=== PATIENT | male | born 1975 | race American Indian/Alaskan Native ===

== ENCOUNTER 2016-12-16 11:12 | Inpatient (IN) | payer MEDICARE ==
[2016-12-16 12:18] LABS: Basophils % (Auto) 0.8 % (0.0-1.8); Eosinophils % (Auto) 1.9 % (0.0-4.3); Hematocrit 47.7 % (35.5-45.6); Hemoglobin 15.5 gm/dl (11.8-15.2); Mean Corpuscular HGB Conc 32 % (32-34); Mean Corpuscular Hemoglobin 28 pg (28-32); Mean Corpuscular Volume 86 fl (84-94); Red Blood Count 5.57 M/mm3 (3.65-5.03); Red Cell Distribution Width 15.2 % (13.2-15.2); White Blood Count 3.8 K/mm3 (4.5-11.0)
[2016-12-16 12:28] LABS: Platelet Count 119 K/mm3 (140-440)
[2016-12-16 12:29] LABS: Anion Gap 17 mmol/L; Blood Urea Nitrogen 11 mg/dL (9-20); Calcium 8.6 mg/dL (8.4-10.2); Carbon Dioxide 22 mmol/L (22-30); Chloride 104.7 mmol/L (98-107); Glucose 124 mg/dL (75-100); Sodium 140 mmol/L (137-145)
--- NOTE | 2016-12-16 23:48 | Emergency Department Report ---
HPI - General Chief Complaint: Chest Pain Time Seen by Provider: 12/16/16 23:30 - HPI HPI: Room 5 The patient is a 41-year-old male presenting with a chief complaint of chest pain. The patient states his symptoms began at approximately 04:00 this morning with substernal chest pain that was "pricking" in nature. Patient admits to shortness of breath and nausea without vomiting or diaphoresis. The patient states his chest pain has been constant and waxes and wanes. The patient currently gives his pain a score of 6.5/10. Patient states his last stress test occurred approximately 3-5 months ago his last cardiac catheterization occurred 5-6 years ago Location: Chest Duration: Constant since 04:00 Quality: "Pricking" Severity: 0.5/10 Modifying factors: Unknown Context: [see above] Mode of transportation: Unknown ED Past Medical Hx - Past Medical History Hx Hypertension: Yes Hx Seizures: Yes Additional medical history: Thrombocytopenia - Surgical History Additional Surgical History: disk fusion to neck 1994 & oct 2013 - Family History Family history: no significant - Social History Smoking Status: Never Smoker Substance Use Type: None - Medications Home Medications: Home Medications Medication Instructions Recorded Confirmed Last Taken Type levETIRAcetam [Keppra TAB] 1,000 mg PO BID #60 tablet 10/05/15 11/08/15 Unknown Rx Ammonium Lactate [Lac-Hydrin 1 applicatio TP BID 30 Days 11/09/15 Unknown Rx Lotion] Hydrochlorothiazide [HCTZ] 25 mg PO DAILY #30 tablet 11/09/15 Unknown Rx Tizanidine HCl [Zanaflex] 2 mg PO TID PRN #15 capsule 11/09/15 Unknown Rx amLODIPine [Norvasc] 5 mg PO DAILY #30 tab 11/09/15 Unknown Rx Lisinopril/Hydrochlorothiazide 1 each PO QDAY #30 tablet 05/18/16 Unknown Rx [Zestoretic 20-12.5 mg] levETIRAcetam [Keppra TAB] 500 mg PO BID #60 tablet 05/18/16 Unknown Rx traMADol [Ultram] 50 mg PO Q6HR PRN #10 tablet 05/18/16 Unknown Rx ED Review of Systems ROS: Stated complaint: CHEST PAIN Other details as noted in HPI Comment: All other systems reviewed and negative Constitutional: denies: chills, fever Eyes: denies: eye pain, eye discharge, vision change ENT: denies: ear pain, throat pain Respiratory: shortness of breath Cardiovascular: chest pain, palpitations Gastrointestinal: nausea. denies: abdominal pain, vomiting, diarrhea Genitourinary: denies: urgency, dysuria Musculoskeletal: denies: back pain, joint swelling, arthralgia Skin: denies: rash, lesions Neurological: denies: headache, weakness, paresthesias Psychiatric: denies: anxiety, depression Hematological/Lymphatic: denies: easy bleeding, easy bruising Physical Exam - Physical Exam Vital Signs: Vital Signs 12/16/16 11:39 Temperature 97.6 F Pulse Rate 63 Respiratory 18 Rate Blood Pressure 131/92 O2 Sat by Pulse 98 Oximetry Physical Exam: GENERAL: The patient is well-developed well-nourished male lying on stretcher not appear to be in acute distress. [] HEENT: Normocephalic. Atraumatic. Extraocular motions are intact. Patient has moist mucous membranes. NECK: Supple. Trachea midline CHEST/LUNGS: Clear to auscultation. There is no respiratory distress noted. HEART/CARDIOVASCULAR: Regular. There is no tachycardia. There is no gallop rub or murmur. ABDOMEN: Abdomen is soft, nontender. Patient has normal bowel sounds. There is no abdominal distention. SKIN: There is no rash. There is no diaphoresis. NEURO: The patient is awake, alert, and oriented. The patient is cooperative. The patient has normal speech MUSCULOSKELETAL: There is no evidence of acute injury. ED Course Vital Signs 12/16/16 11:39 Temperature 97.6 F Pulse Rate 63 Respiratory 18 Rate Blood Pressure 131/92 O2 Sat by Pulse 98 Oximetry ED Medical Decision Making - Lab Data Result diagrams: 12/16/16 11:58 12/16/16 11:58 Laboratory Tests 12/16/16 12/16/16 12/16/16 11:58 11:58 15:27 WBC 3.8 L RBC 5.57 H Hgb 15.5 H Hct 47.7 H MCV 86 MCH 28 MCHC 32 RDW 15.2 Plt Count 119 L Lymph % (Auto) 43.7 H [place] % (Auto) 7.8 H Eos % (Auto) 1.9 Baso % (Auto) 0.8 Lymph # 1.7 Posey # 0.3 Eos # 0.1 Baso # 0.0 Seg Neutrophils % 45.8 Seg Neutrophils # 1.8 Sodium 140 Potassium 4.0 Chloride 104.7 Carbon Dioxide 22 Anion Gap 17 BUN 11 Creatinine 1.0 Estimated GFR > 60 BUN/Creatinine Ratio 11.00 Glucose 124 H Calcium 8.6 Troponin T < 0.010 < 0.010 12/16/16 21:05 WBC RBC Hgb Hct MCV MCH MCHC RDW Plt Count Lymph % (Auto) [place]osey % (Auto) Eos % (Auto) Baso % (Auto) Lymph # Posey # Eos # Baso # Seg Neutrophils % Seg Neutrophils # Sodium Potassium Chloride Carbon Dioxide Anion Gap BUN Creatinine Estimated GFR BUN/Creatinine Ratio Glucose Calcium Troponin T < 0.010 - EKG Data -: EKG Interpreted by Me EKG shows normal: sinus rhythm Rate: normal - EKG Data When compared to previous EKG there are: no significant change Interpretation: unchanged when compared t (05/18/2016), nonspecific ST-T wave anuradha (T-wave inversions in leads 2, 3, aVF, V3, V4, V5, V6) - Radiology Data Radiology results: image reviewed (chest x-ray) interpreted by me: Chest x-ray- no focal infiltrates, no ptx - Differential Diagnosis ACS, GERD, pericarditis, pneumonia Critical care attestation.: If time is entered above; I have spent that time in minutes in the direct care of this critically ill patient, excluding procedure time. ED Disposition Clinical Impression: Chest pain at rest Disposition: OP ADMITTED IP TO THIS HOSP Is pt being admited?: Yes Does the pt Need Aspirin: Yes Condition: Fair Instructions: Chest Pain (ED) Referrals: PRIMARY CARE, [Primary Care Provider] - 3-5 Days Time of Disposition: 23:47 (hospitalist notified)
[2016-12-16] MEDS ORDERED: ASPIRIN PO ONE (23:49)
[2016-12-17] MEDS ORDERED: MILK OF MAGNESIA PO PRN (00:42)
[2016-12-17] MEDS ORDERED: SODIUM CHLORIDE FLUSH SYRINGE 10 ML IV PRN (00:42)
[2016-12-17] MEDS ORDERED: TYLENOL PO PRN (00:42)
[2016-12-17] MEDS ORDERED: NORCO 5/325 PO PRN (00:42)
[2016-12-17] MEDS ORDERED: ZOFRAN IV PRN (00:42)
[2016-12-17] MEDS ORDERED: DULCOLAX PR PRN (00:42)
--- NOTE | 2016-12-17 00:45 | History and Physical Report ---
History of Present Illness Date of examination: 12/17/16 History of present illness: 41-year-old man history of hypertension, chronic pain, seizure comes emergency room with complaint of chest pain. Pain is in the left chest which he describes as a sharp pain, constant, started yesterday, intensity 7/10, no radiation. Stated that it's worse with breathing. Admits to nausea, shortness of breath, no diaphoresis or palpitation Patient denies cough, abdominal pain, hematochezia, dysuria, frequency, focal weakness, dysarthria, fever chills, polydipsia polyuria, hot or cold intolerance , easy bruisability, or rash or bleeding from mucosal membrane, rhinorrhea, epistaxis, earache, tinnitus, blurry vision, eye discharge, anxiety, depression. Other review of systems negative PAST SURGICAL HISTORY: Neck Surgery 2 SOCIAL HISTORY: Denies alcohol, tobacco, drugs FAMILY HISTORY: Hypertension Medications and Allergies Allergies Allergy/AdvReac Type Severity Reaction Status Date / Time phenytoin sodium AdvReac CANT STAND Verified 12/16/16 11:50 [From Dilantin] UP phenytoin sodium extended AdvReac CANT STAND Verified 12/16/16 11:50 [From Dilantin] UP Home Medications Medication Instructions Recorded Confirmed Last Taken Type levETIRAcetam [Keppra TAB] 1,000 mg PO BID #60 tablet 10/05/15 11/08/15 Unknown Rx Ammonium Lactate [Lac-Hydrin 1 applicatio TP BID 30 Days 11/09/15 Unknown Rx Lotion] Hydrochlorothiazide [HCTZ] 25 mg PO DAILY #30 tablet 11/09/15 Unknown Rx Tizanidine HCl [Zanaflex] 2 mg PO TID PRN #15 capsule 11/09/15 Unknown Rx amLODIPine [Norvasc] 5 mg PO DAILY #30 tab 11/09/15 Unknown Rx Lisinopril/Hydrochlorothiazide 1 each PO QDAY #30 tablet 05/18/16 Unknown Rx [Zestoretic 20-12.5 mg] levETIRAcetam [Keppra TAB] 500 mg PO BID #60 tablet 05/18/16 Unknown Rx traMADol [Ultram] 50 mg PO Q6HR PRN #10 tablet 05/18/16 Unknown Rx Active Meds: Active Medications Amlodipine Besylate (Norvasc) 5 mg PO DAILY [facility] Hydrochlorothiazide (Hctz) 25 mg PO DAILY [facility] Lactic Acid (Lac-Hydrin) 1 applic TP BID [facility] Levetiracetam (Keppra) 500 mg PO BID [facility] Exam - Physical Exam Narrative exam: Gen. appearance: Patient lying in bed, no apparent distress HEENT: Normocephalic, atraumatic, pupils equally round and reactive to light, extraocular movement intact, and no sclericterus,. No JVD or thyromegaly or nodule,neck supple, no carotid bruit ,mucous membranes moist, no exudate or erythema Heart: S1, S2, regular rate and rhythm Lungs: Clear to auscultation bilaterally, breathing comfortable Abdomen: Positive bowel sounds, nontender, nondistended, no organomegaly Extremity: No edema, cyanosis, clubbing Skin: No rash, nodules, warm, dry Neuro: Oriented 3, cranial nerves II-12 intact, speech is fluent, motor and sensory intact - Constitutional Vitals: Temp Pulse Resp BP Pulse Ox 97.6 F 63 18 131/92 98 12/16/16 11:39 12/16/16 11:39 12/16/16 11:39 12/16/16 11:39 12/16/16 11:39 Results - Labs CBC & Chem 7: 12/16/16 11:58 12/16/16 11:58 Labs: Abnormal lab results 12/16/16 12/16/16 Range/Units 11:58 11:58 WBC 3.8 L (4.5-11.0) K/mm3 RBC 5.57 H (3.65-5.03) M/mm3 Hgb 15.5 H (11.8-15.2) gm/dl Hct 47.7 H (35.5-45.6) % Plt Count 119 L (140-440) K/mm3 Lymph % (Auto) 43.7 H (13.4-35.0) % [place] % (Auto) 7.8 H (0.0-7.3) % Glucose 124 H (75-100) mg/dL - Imaging and Cardiology EKG: image reviewed Chest x-ray: image reviewed Assessment and Plan Atypical chest pain Seizure [place] pain and Admits medicine Check cardiac enzymes, liver profile consult cardiology Start DVT prophylaxis
[2016-12-17 05:13] LABS: Creatine Kinase MB 2.8 ng/mL (0.0-4.0)
--- NOTE | 2016-12-17 06:21 | Admit Criteria Form ---
Admission Criteria Documentation: CARDIOLOGY GRG Clinical Indications for Admission to Inpatient Care ( Place 'X' for any and all applicable criteria): Hospital admission is needed for appropriate care of the patient because of ANY ONE of the following (1): [ ] I. Hemodynamic instability as indicated by ALL of the following (1)(2)(3) (4)(5) [ ]a) Vital signs or other findings not as expected for chronic patient condition or baseline [ ]b) Instability indicated by ANY ONE of the following: [ ]i) Hypotension [ ]ii) Symptomatic Tachycardia unresponsive to treatment ( e.g., analgesia, fluids, sedation as indicated) [ ]iii) Inadequate perfusion indicated by ANY ONE of the following: [ ] 1) Lactic acidosis (> 2 mmol/L) [ ] 2) New abnormal capillary refill (> 3 seconds) [ ] 3) Reduced urine output [ ] 4) New altered mental status [ ]iv) Orthostatic vital sign changes unresponsive to treatment (e.g., fluids) [ ]v) IV inotropic or vasopressor medication required to maintain adequate blood pressure or perfusion [ ] II. Severe heart failure as indicated by ANY ONE of the following(17)(18) [ ]a) Respiratory distress [ ]b) Hypotension [ ]c) Anasarca (refractory to outpatient therapy) [ ]d) Cardiac arrhythmias of immediate concern [ ]e) Myocardial ischemia [ ] III. Cardiac arrhythmias or findings of immediate concern indicated by ANY ONE of the following (19)(20): [ ] a) Heart rhythms that are inherently dangerous or unstable indicated by ANY ONE of the following (21)(22)(23): [ ] i) Resuscitated ventricular fibrillation or cardiac arrest [ ] ii) Ventricular escape rhythm [ ] iii) Sustained ventricular tachycardia (30 seconds or more of ventricular rhythm at greater than 100 beats per minute) [ ] iv) Nonsustained ventricular tachycardia and ANY ONE of the following: [ ] 1) Suspected cardiac ischemia as cause or consequence of ventricular tachycardia [ ] 2) In setting of acute myocarditis [ ] b) Unstable cardiac conduction defects indicated by ANY ONE of the following(23)(24)(25) [ ] i) Type II second-degree atrioventricular block [ ]ii) Third-degree atrioventricular block [ ]iii) New-onset left bundle branch block with suspected myocardial ischemia [ ]c) Any heart rhythm and ANY ONE of the following (21)(22)(26)(27) (28) [ ] i) Continuous long-term ECG monitoring needed (e.g., initiation of drug requiring monitoring for more than 24 hours) [ ] ii) Patient has automatic implanted cardioverter defibrillator that is repeatedly firing, malfunctioning, or in need of immediate adjustment of settings beyond the scope of ambulatory or observation care [ ]d) Heart rhythms of concern due to ANY ONE of the following: [ ] i) Hypotension [ ] ii) Respiratory distress [ ] iii) Association with other significant symptoms (e.g., bradycardia with syncope or ongoing dizziness, supraventricular tachycardia with chest pain (14)(15)(17) [ ] IV. Monitoring for cardiac contusion beyond the scope of observation care needed [A](30)(31)(32) [ ] V. Surgical or device complication (e.g., valve replacement complication , pacemaker dysfunction) (35)(41)(44)(45)(46) [ ] . Inpatient palliative care needed. [B](49) Also use Inpatient Palliative Care Criteria [ ] VII. Nonbacterial thrombotic (marantic) endocarditis (36)(43)(47)(48) [X ] VIII. Cardiology condition, symptom, or finding for which emergency and observation care has failed or are not considered appropriate. [ ] IX. Acute valvular disease requiring inpatient as indicated by ANY ONE of the following (41) [ ]a) Acute valvular regurgitation (42) [ ]b) Noninfectious valvulitis (43) [ ]c) Obstructive valve thrombosis [ ]d) Paravalvular leak [ ]e) Other significant valvular disorder remaining after emergency or observation level of care (as appropriate) [ ]X. Pericardial disease requiring inpatient treatment as indicated by ANY ONE of the following (33)(34)(35)(36)(37) [ ]a) Suspected tamponade (38)(39)(40) [ ]b) Hemopericardium [ ]c) Other significant pericardial disorder remaining after emergency or observation level of care (as appropriate) [ ] XI. Cardiac ischemia beyond scope of emergency and observation care. [ ] XII. Hypertension requiring inpatient treatment as indicated by ANY ONE of the following (6)(7)(8) [ ]a) SBP greater than 220 mm Hg or DBP greater than 120 mmHg despite treatment [ ]b) SBP greater than 140 mm Hg or DBP greater than 100 mm Hg with evidence of acute end organ damage as indicated by ANY ONE of the following [ ] i) Altered mental status [ ] ii) Acute renal failure as indicated by new onset of ANY ONE of the following (9)(10)(11)(12)(13) [ ]1) 3-fold rise in serum creatinine from baseline [ ]2) Serum creatinine greater than 4 mg/dL ( 354 micromoles/L) with acute rise greater than 0.5 mg/dL (44.2 micromoles/L) [ ]3) Reduction of more than 75% in estimated glomerular filtration rate from baseline [ ]4) Estimated glomerular filtration rate less than 35 mL/min/1.73m2 (0.59 mL/sec/1.73m2) in child up to 18 years of age [ ]5) Cessation of urine output indicated by ALL of the following [ ]A. Adequate volume status [ ]B. Inadequate urine output as indicated by ANY ONE of the following [ ]a. Urine output less than 0.3 mL/kg/hr for 24 hours [ ]b. Anuria (urine output less than 0.1 mL/kg/hr) for 12 hours [ ] iii) Aortic dissection [ ] iv) Myocardial Ischemia [ ] v) Left ventricular heart failure [ ]vi) Retinal Hemorrhage [ ]vii) Other significant finding [ ]c) Hypertension in child requiring inpatient treatment as indicated by ALL of the following(14)(15)(16) [ ] i) Outpatient treatment not effective, not available, or not appropriate [ ]ii) SBP or DBP greater than 95th percentile for age [ ]iii) Evidence of acute end organ damage as indicated by ANY ONE of the following [ ]1) Altered mental status [ ]2) Acute renal failure as indicated by new onset of ANY ONE of the following(9)(10)(11)(12)(13) [ ]A. 3-fold rise in serum creatinine from baseline [ ]B. Serum creatinine greater than 4 mg/dL (354 micromoles/L) with acute rise greater than 0.5 mg/dL (44.2 micromoles/L) [ ]C. Reduction of more than 75% in estimated glomerular filtration rate from baseline [ ]D. Estimated glomerular filtration rate less than 35 mL/min/1.73m2 (0.59 mL/sec/1.73m2) in child up to 18 years of age [ ]E. Cessation of urine output indicated by ALL of the following [ ]a. Adequate volume status [ ]b. Inadequate urine output as indicated by ANY ONE of the following [ ]i) Urine output less than 0.3 mL/kg/hr for 24 hours [ ]ii) Anuria ( urine output less than 0.1 mL/kg/hr) for 12 hours [ ]3) Severe headache [ ]4) Visual disturbance [ ]5) Retinal hemorrhage [ ]6) Other significant finding [ ]XIII. Complications of transplanted heart indicated by ANY ONE of the following(61): [ ]a) Acute graft rejection requiring inpatient management (eg, intravenous immunosuppression)(62)(63) [ ]b) Acute graft heart failure indicated by ANY ONE of the following(64): [ ]i) Hemodynamic instability [ ]ii) Cardiac arrhythmias of immediate concern [ ]iii) Pulmonary edema that is very severe (eg, mechanical ventilation needed, imminent or likely, need for 100% oxygen to keep oxygen saturation above 90%) [ ]iv) Pulmonary edema that is persistent as indicated by ALL of the following: [ ]1) New need for oxygen therapy to keep oxygen saturation above 90% (or increased FiO2 need from baseline) [ ]2) Has not improved sufficiently with emergency department or observation care IV diuretics or other heart failure treatments[E] [ ]v) Altered mental status that is severe or persistent [ ]vi) Increased creatinine (new on laboratory test) with reduction of more than 50% in estimated glomerular filtration rate from baseline [ ]vii) Progressively (ongoing) rising creatinine (known from past laboratory test) with reduction of more than 25% in estimated glomerular filtration rate from baseline [ ]viii) Acute renal failure [ ]ix) Acute peripheral ischemia (eg, examination shows pulseless, cool, mottled, or cyanotic extremity) [ ]x) Pulmonary artery catheter monitoring needed [ ]xi) Other sign or symptom of heart failure requiring inpatient treatment (ie, too severe or not responsive to outpatient and observation care treatment) [ ]c) Infection requiring inpatient management (eg, Hemodynamic instability, need for intravenous antimicrobial treatment)(66)(67)(68)(69)(70) [ ]d) Cardiac allograft vasculopathy requiring inpatient management ( eg evidence of cardiac ischemia)(71) [ ]e) Other complication of transplanted heart (eg, stroke, severe pulmonary hypertension, severe valvular dysfunction) requiring inpatient management(72) The original [facility] [employer] content created by [facility] [employer] has been revised. The portions of the content which have been revised are identified through the use of italic text or in bold, and [facility] has neither reviewed nor approved the modified material. All other unmodified content is copyright [facility] [employer]. Please see references footnoted in the original [facility] [employer] edition 2016
[2016-12-17] MEDS: HCTZ PO SCH ×2 (08:28→10:28)
[2016-12-17] MEDS: NORVASC PO SCH ×2 (08:28→10:28)
[2016-12-17] MEDS: KEPPRA PO SCH ×2 (08:29→10:28)
[2016-12-17] MEDS ORDERED: LAC-HYDRIN TP SCH (10:00)
[2016-12-17] MEDS ORDERED: LOVENOX SUB-Q SCH (10:00)
--- NOTE | 2016-12-17 10:19 | XRay Report ---
AP CHEST: HISTORY: chest pain AP view of the chest demonstrates a normal mediastinal and cardiac contour with clear lungs and normal bony and soft tissue structures. IMPRESSION: Unremarkable AP chest. No significant change since 11/08/15.
[2016-12-17 11:31] LABS: Creatine Kinase MB 3.4 ng/mL (0.0-4.0)
--- NOTE | 2016-12-17 11:56 | Consultation ---
History of Present Illness Consult date: 12/17/16 Medications and Allergies Allergies Allergy/AdvReac Type Severity Reaction Status Date / Time phenytoin sodium AdvReac CANT STAND Verified 12/16/16 11:50 [From Dilantin] UP phenytoin sodium extended AdvReac CANT STAND Verified 12/16/16 11:50 [From Dilantin] UP Home Medications Medication Instructions Recorded Confirmed Last Taken Type levETIRAcetam [Keppra TAB] 1,000 mg PO BID #60 tablet 10/05/15 11/08/15 Unknown Rx Ammonium Lactate [Lac-Hydrin 1 applicatio TP BID 30 Days 11/09/15 Unknown Rx Lotion] Hydrochlorothiazide [HCTZ] 25 mg PO DAILY #30 tablet 11/09/15 Unknown Rx Tizanidine HCl [Zanaflex] 2 mg PO TID PRN #15 capsule 11/09/15 Unknown Rx amLODIPine [Norvasc] 5 mg PO DAILY #30 tab 11/09/15 Unknown Rx Lisinopril/Hydrochlorothiazide 1 each PO QDAY #30 tablet 05/18/16 Unknown Rx [Zestoretic 20-12.5 mg] levETIRAcetam [Keppra TAB] 500 mg PO BID #60 tablet 05/18/16 Unknown Rx traMADol [Ultram] 50 mg PO Q6HR PRN #10 tablet 05/18/16 Unknown Rx Active Meds: Active Medications Acetaminophen (Tylenol) 650 mg PO Q4H PRN PRN Reason: Pain MILD(1-3)/Fever >100.5/[place] Acetaminophen/Hydrocodone Bitart ([place] 5/325) 2 each PO Q6H PRN PRN Reason: Pain, Moderate (4-6) Amlodipine Besylate (Norvasc) 5 mg PO DAILY [facility] Last Admin: 12/17/16 10:28 Dose: Not Given Bisacodyl (Dulcolax) 10 mg MT QDAY PRN PRN Reason: Constipation unrelieved by MOM Hydrochlorothiazide (Hctz) 25 mg PO DAILY [facility] Last Admin: 12/17/16 10:28 Dose: Not Given Lactic Acid (Lac-Hydrin) 1 applic TP BID [facility] Last Admin: 12/17/16 10:29 Dose: 1 applic Levetiracetam (Keppra) 500 mg PO BID [facility] Last Admin: 12/17/16 10:28 Dose: Not Given Magnesium Hydroxide (Milk Of Magnesia) 30 ml PO Q4H PRN PRN Reason: Constipation Ondansetron HCl (Zofran) 4 mg IV Q8H PRN PRN Reason: N/V unrelieved by Reglan Sodium Chloride (Sodium Chloride Flush Syringe 10 Ml) 10 ml IV PRN PRN PRN Reason: LINE FLUSH Physical Examination Vital Signs Temp Pulse Resp BP Pulse Ox 97.6 F 63 18 131/92 98 12/16/16 11:39 12/16/16 11:39 12/16/16 11:39 12/16/16 11:39 12/16/16 11:39 Results 12/16/16 11:58 12/16/16 11:58 Cardiac Enzymes 12/17/16 12/17/16 Range/Units 04:21 10:16 CK-MB (CK-2) 2.8 3.4 (0.0-4.0) ng/mL Lipids 12/17/16 Range/Units 00:58 Triglycerides 137 (2-149) mg/dL Cholesterol 182 (50-199) mg/dL HDL Cholesterol 41 (40-59) mg/dL Cholesterol/HDL Ratio 4.43 % Assessment and Plan 41yo AAM: 1. Atypical chest pain - now resolved and asx * cardiac ct lest year w/ normal cors and 0 ca score * ce neg * ecg unchanged 2. htn 3. siezure d/o 4. conversion d/o cont asa stable cv status no further testing needed thanks
[2016-12-17] MEDS ORDERED: BABY ASPIRIN PO SCH (12:00)
[2016-12-17 12:44] VITALS: BP 178/106
--- NOTE | 2016-12-17 12:49 | Discharge Summary ---
Providers - Providers Date of Admission: 12/17/16 00:42 Date of discharge: 12/17/16 Attending physician: RAYSA MCKINNEY Primary care physician: [employer] Hospitalization Condition: Fair Hospital course: Discharge Diagnosis: 1. Atypical chest pain - now resolved and asx, likely costrochondritis * cardiac ct lest year w/ normal cors and 0 ca score * ce neg * ecg unchanged 2. htn 3. siezure d/o 4. conversion d/o Disposition: DISCHARGED TO HOME OR SELFCARE Time spent for discharge: 32 minutes Core Measure Documentation - Palliative Care Palliative Care/ Comfort Measures: Not Applicable - Core Measures Any of the following diagnoses?: none Exam - Constitutional Vitals: Temp Pulse Resp BP Pulse Ox 98.3 F 62 20 178/106 97 12/17/16 11:42 12/17/16 11:42 12/17/16 11:42 12/17/16 11:42 12/17/16 11:42 General appearance: Present: no acute distress, well-nourished - EENT Eyes: Present: PERRL, EOM intact ENT: hearing intact, clear oral mucosa - Neck Neck: Present: supple, normal ROM - Respiratory Respiratory effort: normal Respiratory: bilateral: CTA - Cardiovascular Rhythm: regular Heart Sounds: Present: S1 & S2 - Extremities Extremities: no ischemia, No edema Peripheral Pulses: within normal limits - Abdominal General gastrointestinal: Present: soft, non-distended, normal bowel sounds - Integumentary Integumentary: Present: warm, dry - Musculoskeletal Musculoskeletal: strength equal bilaterally - Psychiatric Psychiatric: intact judgment & insight - Neurologic Neurologic: no focal deficits, moves all extremities Plan Activity: advance as tolerated Weight Bearing Status: Weight Bear as Tolerated Diet: low cholesterol, low salt Follow up with: PRIMARY CARE, [Primary Care Provider] - 3-5 Days Forms: Discharge Signature Page Prescriptions: Ammonium Lactate [Lac-Hydrin Lotion] 1 applicatio TP BID 30 Days Lisinopril/Hydrochlorothiazide [Zestoretic 20-12.5 mg] 1 each PO QDAY #30 tablet
== END 2016-12-17 15:30 | disposition home or self-care (01) | DRG 206 ==
LOC: ED 11:12 → UNDOADMIN 12-17 00:37 → 4A 12-17 00:37
PROVIDERS: ADMIT Internal Medicine; ATTEND Internal Medicine
DX: M94.0 Chondrocostal junction syndrome [Tietze] (principal); I10 Essential (primary) hypertension; G40.909 Epilepsy, unspecified, not intractable, without status epilepticus; Z82.49 Family history of ischemic heart disease and other diseases of the circulatory system; Z88.8 Allergy status to other drugs, medicaments and biological substances
CPT/HCPCS: 36415; 71010; 80048; 80061; 82550; 82553; 84484; 85025; 85379; 93005; 93010

== ENCOUNTER 2017-02-24 06:13 | Emergency (ER) | payer MEDICARE ==
[2017-02-24] MEDS ORDERED: KEPPRA 1,000 MG/NS 0.75% 100ML 1,000 MG/100 ML BAG IV ONE (08:05)
[2017-02-24] MEDS ORDERED: NORVASC PO ONE (08:05)
[2017-02-24] MEDS ORDERED: KEPPRA PO ONE ×2 (08:23→08:31)
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
[2017-02-24 08:53] LABS: Hematocrit 45.8 % (35.5-45.6); Hemoglobin 14.7 gm/dl (11.8-15.2); Mean Corpuscular HGB Conc 32 % (32-34); Mean Corpuscular Hemoglobin 27 pg (28-32); Mean Corpuscular Volume 85 fl (84-94); Red Blood Count 5.38 M/mm3 (3.65-5.03); Red Cell Distribution Width 15.2 % (13.2-15.2); White Blood Count 4.2 K/mm3 (4.5-11.0)
[2017-02-24 08:54] LABS: Platelet Count 88 K/mm3 (140-440)
[2017-02-24 09:14] LABS: Anion Gap 20 mmol/L; BUN/Creatinine Ratio 17.14; Blood Urea Nitrogen 12 mg/dL (9-20); Calcium 8.9 mg/dL (8.4-10.2); Carbon Dioxide 22 mmol/L (22-30); Chloride 102.8 mmol/L (98-107); Glucose 134 mg/dL (75-100); Potassium 3.8 mmol/L (3.6-5.0); Sodium 141 mmol/L (137-145)
[2017-02-24 10:00] VITALS: BP 130/80
== END 2017-02-24 10:26 | disposition home or self-care (01) ==
LOC: ED 06:13
DX: R56.9 Unspecified convulsions (principal); I10 Essential (primary) hypertension; D69.6 Thrombocytopenia, unspecified; Z91.14 Patient's other noncompliance with medication regimen
CPT/HCPCS: 36415; 80048; 83735; 85027; 99283; J1953

== ENCOUNTER 2017-03-09 04:57 | Emergency (ER) | payer MEDICARE ==
[2017-03-09] MEDS ORDERED: KEPPRA 1,000 MG/NS 0.75% 100ML 1,000 MG/100 ML BAG IV ONE (05:16)
[2017-03-09 05:58] LABS: Urine Drugs of Abuse Note Disclamer
[2017-03-09 06:10] LABS: Basophils % (Auto) 0.4 % (0.0-1.8); Eosinophils % (Auto) 1.6 % (0.0-4.3); Hematocrit 43.6 % (35.5-45.6); Hemoglobin 14.4 gm/dl (11.8-15.2); Mean Corpuscular HGB Conc 33 % (32-34); Mean Corpuscular Hemoglobin 28 pg (28-32); Mean Corpuscular Volume 85 fl (84-94); Red Blood Count 5.12 M/mm3 (3.65-5.03); Red Cell Distribution Width 15.3 % (13.2-15.2); White Blood Count 4.3 K/mm3 (4.5-11.0)
[2017-03-09 06:16] LABS: Bilirubin,Urine NEG (Negative); Blood,Urine NEG (Negative); Ketones,Urine NEG (Negative); Leukocyte Esterase,Urine NEG (Negative); Mucus,Urine FEW /HPF; Nitrite,Urine NEG (Negative); Protein,Urine <15 mg/dL mg/dL (Negative); Urobilinogen,Urine < 2.0 mg/dL (<2.0)
[2017-03-09 06:17] LABS: Platelet Count 90 K/mm3 (140-440)
[2017-03-09 06:20] LABS: INR 1.13 (0.87-1.13)
[2017-03-09 06:21] LABS: Partial Thromboplastin Time 31.4 Sec. (24.2-36.6)
[2017-03-09 06:26] LABS: Alanine Aminotransferase 35 units/L (7-56); Albumin 4.2 g/dL (3.9-5); Albumin/Globulin Ratio 1.4 %; Alkaline Phosphatase 50 units/L (35-129); Anion Gap 18 mmol/L; Blood Urea Nitrogen 14 mg/dL (9-20); Calcium 8.8 mg/dL (8.4-10.2); Carbon Dioxide 24 mmol/L (22-30); Chloride 102.5 mmol/L (98-107); Glucose 93 mg/dL (75-100); Potassium 3.6 mmol/L (3.6-5.0); Sodium 141 mmol/L (137-145); Total Protein 7.1 g/dL (6.3-8.2)
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
[2017-03-09] MEDS ORDERED: BOOSTRIX IM ONE (07:11)
--- NOTE | 2017-03-09 07:12 | Cat Scan Report ---
FINAL REPORT PROCEDURE: CT HEAD/BRAIN WO CON TECHNIQUE: Computerized tomography of the head was performed without contrast material. HISTORY: Altered Mental Status s/p seizure COMPARISON: No prior studies are available for comparison. FINDINGS: Skull and scalp: There is scalp swelling at the skull vertex. There is partial imaging of in metallic foreign body in the scalp. Please correlate clinically. Bony calvarium is intact.. Paranasal sinuses: Normal. Ventricles and subarachnoid spaces: Normal. Cerebrum: No evidence of hemorrhage, acute infarction or mass . Cerebellum and brainstem: No evidence of hemorrhage, acute infarction or mass. Vasculature: Normal. Comments: None. IMPRESSION: There is no skull fracture or intracranial hemorrhage.There is scalp swelling at the skull vertex. There is partial imaging of in metallic foreign body in the scalp. Please correlate clinically.
--- NOTE | 2017-03-09 07:16 | Cat Scan Report ---
FINAL REPORT PROCEDURE: CT CERVICAL SPINE WO CON TECHNIQUE: Computerized tomography of the cervical spine was performed from the skull base to T1 without contrast material. HISTORY: fall COMPARISON: No prior studies are available for comparison. FINDINGS: There is hardware transfixing the ventral aspect of C4 and C5. There is hardware transfixing the spinous processes of C6 and C7. There are multilevel degenerative disc changes. There are no fractures or malalignments. There is no facet dislocation. The skull base and the foramen magnum are intact. The prevertebral soft tissues are normal in thickness. IMPRESSION: There is no acute traumatic injury.
--- NOTE | 2017-03-09 08:43 | Admit Criteria Form ---
Admission Criteria Documentation: HEMODYNAMIC INSTABILITY Clinical Indications for Inpatient Care (Place 'X' for any and all applicable criteria): Ongoing inpatient care may be indicated for hemodynamic instability as indicated by ANY ONE of the following (1)(2)(3)(4)(10): [ ]I) Marked hemodynamic change from baseline (eg, SBP 20 mm Hg below patient's usual pressure) [X ]II) New SBP less than 90 mm Hg or mean arterial pressure less than 70 mm Hg [B](15) [ ]IIII) Symptomatic heart rate greater than 100 or less than 60 beats per minute unresponsive to treatment (eg, analgesia, fluids) [ ]IV) Inadequate perfusion as indicated by ANY ONE of the following: [ ]a) Lactic acidosis, with lactic acid greater than 18 mg/dL (2 mmol/ L) or base excess less than -5 mEq/L [ ]b) New abnormal capillary refill (longer than 3 seconds) [ ]c) New altered mental status [ ]d) Reduced urine output [ ]V) Orthostatic vital sign changes [B] that are symptomatic and unresponsive to treatment (eg, fluids) [ ]) IV inotropic or vasopressor medication required(26) Extended stay beyond goal length of stay for primary condition may be needed until ALL of the following are present(1)(2)(3): [ ]a) Heart rate > 60 and < 100 beats per minute or patient is clinically stable at current rate (eg, baseline) [ ]b) SBP >100 mm Hg and <160 mm Hg or patient is clinically stable at current pressure (eg, baseline) [ ]c) DBP greater than 50 mm Hg and less than 100 mm Hg or patient is clinically stable at current pressure (eg, baseline) [ ]d) Urine output greater than 0.5 mL/kg per hour [ ]e) Room air oxygen saturation 90% or greater or at baseline [ ]f) Orthostatic vital sign changes absent, asymptomatic, at baseline, or manageable at lower level of care [ ]g) Medical comorbidities manageable at lower level of care The original [employer] content created by [employer] has been revised. The portions of the content which have been revised are identified through the use of italic text or in bold, and [facility] [employer] has neither reviewed nor approved the modified material. All other unmodified content is copyright [employer]. Please see references footnoted in the original [facility] edition 2016 Admission Criteria Met: Yes
--- NOTE | 2017-03-09 15:21 | XRay Report ---
PORTABLE CHEST: Chest pain. An AP portable view of the chest demonstrates a normal cardiac contour considering the limits of this technique. The lungs are clear with no evidence of infiltrate, fluid or failure. IMPRESSION: Normal portable chest.
[2017-03-09 16:56] VITALS: BP 167/101
== END 2017-03-09 16:58 | disposition home or self-care (01) ==
LOC: ED 04:57
DX: G40.909 Epilepsy, unspecified, not intractable, without status epilepticus (principal); I10 Essential (primary) hypertension; D69.6 Thrombocytopenia, unspecified; Z88.8 Allergy status to other drugs, medicaments and biological substances
CPT/HCPCS: 36415; 70450; 71010; 72125; 80053; 80307; 81001; 82140; 83735; 84484; 85025; 85610; 85730; 90715; 93005; 93010; 96365; 99285; J1953

== ENCOUNTER 2017-08-09 13:53 | Emergency (ER) | payer MEDICARE ==
[2017-08-09 14:55] LABS: Basophils % (Auto) 0.9 % (0.0-1.8); Eosinophils % (Auto) 3.8 % (0.0-4.3); Hematocrit 27.6 % (35.5-45.6); Hemoglobin 9.2 gm/dl (11.8-15.2); Mean Corpuscular HGB Conc 33 % (32-34); Mean Corpuscular Hemoglobin 29 pg (28-32); Mean Corpuscular Volume 88 fl (84-94); Platelet Count 302 K/mm3 (140-440); Red Blood Count 3.15 M/mm3 (3.65-5.03); Red Cell Distribution Width 17.1 % (13.2-15.2); White Blood Count 4.8 K/mm3 (4.5-11.0)
[2017-08-09 15:15] LABS: Anion Gap 19 mmol/L; BUN/Creatinine Ratio 10; Blood Urea Nitrogen 12 mg/dL (9-20); Calcium 9.9 mg/dL (8.4-10.2); Carbon Dioxide 20 mmol/L (22-30); Chloride 102.7 mmol/L (98-107); Glucose 88 mg/dL (75-100); Sodium 138 mmol/L (137-145)
--- NOTE | 2017-08-09 15:40 | XRay Report ---
CHEST 2 VIEWS INDICATION: Shortness of breath. COMPARISON: 03/09/2017 FINDINGS: Frontal and lateral chest radiographs demonstrate interval aortic arch and descending aortic stent repair. Normal heart size and mariia. Mild left basilar atelectasis or scarring. Clear remainder lungs. A right-sided central catheter tip about the cavoatrial junction is new. Lower cervical fusion hardware again partially imaged. Stable bones. Left hemidiaphragm appears eventrated posteriorly on the lateral view, now not evident on the frontal. CONCLUSION: No acute chest process with interval aortic stent graft repair, a new right-sided central catheter and few other findings, as above. Please correlate. Thank you for the opportunity to participate in this patient's care.
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
[2017-08-09 21:52] VITALS: BP 131/83
== END 2017-08-09 22:00 | disposition home or self-care (01) ==
LOC: ED 13:53
DX: T82.49XA Other complication of vascular dialysis catheter, initial encounter (principal); I10 Essential (primary) hypertension; I25.2 Old myocardial infarction; N17.9 Acute kidney failure, unspecified; R56.9 Unspecified convulsions; Z88.8 Allergy status to other drugs, medicaments and biological substances
CPT/HCPCS: 36415; 71020; 80048; 84484; 85025

== ENCOUNTER 2017-09-03 23:22 | Emergency (ER) | payer MEDICARE ==
[2017-09-04 00:37] LABS: Basophils % (Auto) 0.7 % (0.0-1.8); Eosinophils % (Auto) 4.4 % (0.0-4.3); Hematocrit 30.9 % (35.5-45.6); Hemoglobin 9.9 gm/dl (11.8-15.2); Mean Corpuscular HGB Conc 32 % (32-34); Mean Corpuscular Hemoglobin 27 pg (28-32); Mean Corpuscular Volume 84 fl (84-94); Platelet Count 402 K/mm3 (140-440); Red Blood Count 3.69 M/mm3 (3.65-5.03); Red Cell Distribution Width 17.4 % (13.2-15.2); White Blood Count 7.4 K/mm3 (4.5-11.0)
[2017-09-04 00:52] LABS: Alanine Aminotransferase 10 units/L (7-56); Albumin 3.3 g/dL (3.9-5); Albumin/Globulin Ratio 0.7 %; Alkaline Phosphatase 131 units/L (35-129); BUN/Creatinine Ratio 10; Blood Urea Nitrogen 13 mg/dL (9-20); Calcium 9.7 mg/dL (8.4-10.2); Carbon Dioxide 21 mmol/L (22-30); Glucose 93 mg/dL (75-100); Lipase 105 units/L (13-60); Sodium 137 mmol/L (137-145); Total Protein 8.2 g/dL (6.3-8.2)
[2017-09-04 00:53] LABS: Anion Gap 23 mmol/L; Chloride 97.8 mmol/L (98-107); Potassium 4.4 mmol/L (3.6-5.0)
[2017-09-04] MEDS ORDERED: ZOFRAN IV ONE (07:05)
[2017-09-04] MEDS ORDERED: NACL 0.9% 1000 ML 1,000 ML IV ONE (07:05)
[2017-09-04] MEDS ORDERED: DILAUDID IV ONE (07:08)
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
[2017-09-04] MEDS ORDERED: NACL ONE (07:13)
[2017-09-04 07:30] LABS: Bacteria,Urine 1+ /HPF (Negative); Bilirubin,Urine NEG (Negative); Blood,Urine SM (Negative); Ketones,Urine NEG (Negative); Leukocyte Esterase,Urine LG (Negative); Mucus,Urine FEW /HPF; Nitrite,Urine NEG (Negative)
[2017-09-04 07:32] LABS: WBC,Urine > 182.0 /HPF (0.0-6.0)
--- NOTE | 2017-09-04 08:23 | Cat Scan Report ---
CT scan of abdomen and pelvis without IV contrast: History: Abdominal pain. Findings: Left pleural effusion. No pericardial effusion. Normal liver spleen pancreas and gallbladder. Normal adrenals. The left kidney smaller compared to right. Right kidney measured 9.8 cm in vertical dimension and the left kidney measures 8 cm. No calculi. No hydronephrosis. Uniformly thickwalled urinary bladder probably due to inadequate distention or cystitis. No free intraperitoneal fluid or air. No evidence of adenopathy. Gaseous: With the moderate volume of stool in colon. No significant bowel distention. No evidence of appendicitis or diverticulitis. Impression: Bilateral small kidneys. Left kidney smaller compared to right. Gaseous colon with moderate volume stool in colon. Left pleural effusion.
[2017-09-04] MEDS ORDERED: ROCEPHIN/NS 1 GM/50 ML 1 GM/50 ML BAG IV ONE (09:00)
[2017-09-04] MEDS ORDERED: ZOFRAN ONE (09:18)
[2017-09-04] MEDS ORDERED: DILAUDID ONE (09:19)
--- NOTE | 2017-09-04 09:19 | XRay Report ---
Portable chest: Pleural effusion. There is a endograft from the aortic arch to the mid descending thoracic aorta. The heart is normal in size. There may be very minimal blunting of the lateral left costophrenic angle. Compared to prior examination of August 09 there appears to be less blunting and resolution of focal atelectasis seen at that time. Of incidental note is surgical hardware in the mid and lower cervical spine. Impressions: Minimal left angle blunting either due to small effusion or scarring.
[2017-09-04 09:52] VITALS: BP 105/68
== END 2017-09-04 11:12 | disposition home or self-care (01) ==
LOC: ED 23:22
DX: N30.00 Acute cystitis without hematuria (principal); R11.2 Nausea with vomiting, unspecified; R10.10 Upper abdominal pain, unspecified; I10 Essential (primary) hypertension; I25.2 Old myocardial infarction
CPT/HCPCS: 36415; 71010; 74176; 80053; 81001; 83690; 84484; 85025; 87076; 87086; 87186; 93005; 93010; 96365; 96375; 99285; J0696; J1170; J2405; J7030

== ENCOUNTER 2018-01-08 15:04 | Outpatient (CLI) | payer MEDICARE ==
--- NOTE | 2018-01-08 18:44 | XRay Report ---
FINAL REPORT EXAM: XR KNEE BILAT 1-2V HISTORY: BILATERAL KNEE PAIN TECHNIQUE: Bilateral knees 6 views PRIORS: None. FINDINGS: No fracture is identified. No dislocation seen. No evidence of joint effusion. Patella demonstrates normal positioning. No acute bony abnormality identified. IMPRESSION: Negative bilateral knee series
== END 2018-01-08 15:05 | disposition home or self-care (01) ==
LOC: SPVIMAG 15:04
PROVIDERS: ATTEND Orthopaedic Surgery Sports Medicine
DX: M25.562 Pain in left knee (principal); M25.561 Pain in right knee

== ENCOUNTER 2018-01-23 10:49 | Outpatient (CLI) | payer MEDICARE ==
--- NOTE | 2018-01-23 20:59 | XRay Report ---
FINAL REPORT PROCEDURE: Lumbar spine. TECHNIQUE: AP and lateral views. HISTORY: LOW BACK PAIN COMPARISON: No prior studies are available for comparison. FINDINGS: The lumbar vertebrae have normal height and alignment. There are no fractures. There is no spondylolisthesis. The disc spaces appear adequate. The sacrum and sacroiliac joints are unremarkable. IMPRESSION: No significant abnormality.
--- NOTE | 2018-01-23 21:07 | XRay Report ---
FINAL REPORT PROCEDURE: Thoracic spine. TECHNIQUE: AP and lateral views. HISTORY: SPASTICITY COMPARISON: No prior studies are available for comparison. FINDINGS: The thoracic vertebrae have normal height and alignment. There are no fractures. There is no subluxation. The disc spaces appear satisfactory. There is a thoracic aortic stent graft. IMPRESSION: No significant abnormality.
--- NOTE | 2018-01-23 21:10 | XRay Report ---
FINAL REPORT PROCEDURE: Cervical spine. TECHNIQUE: Three views. HISTORY: CERVICAL SPONDYLOSIS COMPARISON: No prior studies are available for comparison. FINDINGS: The cervical vertebrae have normal height and satisfactory alignment. There are no fractures. There is no subluxation. There is an anterior fusion at C4 and C5. There is a posterior fusion at C6 and C7. The prevertebral soft tissues have normal thickness. IMPRESSION: Previous surgery as described.
== END 2018-01-23 10:50 | disposition home or self-care (01) ==
LOC: SPVIMAG 10:49
PROVIDERS: ATTEND Physical Medicine & Rehabilitation
DX: M47.812 Spondylosis without myelopathy or radiculopathy, cervical region (principal); M54.5 Low back pain; M54.6 Pain in thoracic spine; R25.2 Cramp and spasm; Z98.1 Arthrodesis status; Z95.828 Presence of other vascular implants and grafts
CPT/HCPCS: 72040; 72070; 72100